=== PATIENT | male | born 1965 | race Caucasian/White ===

== ENCOUNTER 2019-08-08 17:44 | Emergency (ER) | payer BC, MEDICAID ==
[~2019-08-08] VITALS: Ht 172.7 cm; Wt 83.0 kg
--- NOTE | 2019-08-08 18:00 | NUR ---
PT IS IN ROOM #1A. DR BLANDON EVALUTED THE PT.
[2019-08-08] MEDS ORDERED: ACETAMINOPHEN 325 MG TABLET ONE (18:15)
[2019-08-08] MEDS ORDERED: ACETAMINOPHEN 325 MG TABLET PO ONE (18:15)
--- NOTE | 2019-08-08 18:37 | NUR ---
PT WAS D/C'd TO HOME BY DR BLANDON. D/C INSTRUCTIONS GIVEN TO THE PT BY DR BLANDON.
[2019-08-08 18:38] VITALS: BP 128/75
[2019-08-08] MEDS ORDERED: ONDANSETRON ODT 4 MG TAB.RAPDIS SL ONE (18:45)
== END 2019-08-08 18:39 | disposition home or self-care (01) ==
LOC: ER 17:44
DX: R07.89 Other chest pain (principal); F32.9 Major depressive disorder, single episode, unspecified; Z79.899 Other long term (current) drug therapy
CPT/HCPCS: 71045; 93005; A4663